=== PATIENT | male | born 1975 | race Hispanic/Latino ===

== ENCOUNTER 2021-05-12 09:40 | Emergency (ER) | payer MEDICARE ==
--- NOTE | 2021-05-12 09:46 | Emergency Department Report ---
ED Chest Pain HPI - General Stated Complaint: CHEST PAIN Time Seen by Provider: 05/12/21 09:41 - History of Present Illness Initial Comments: 45-year-old male presents to the emergency department through triage with a complaint of a syncopal episode followed by left-sided chest pain, left arm pain, and muscle spasms/contractures. 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 At the time of my examination the patient has his left upper extremity contracted up against his body unable to relax his muscles. He has a remote history of non-hodgkins lymphoma. He denies any tobacco, illicit drug use or alcohol use/abuse. He did not take anything for symptoms prior to presentation. - Related Data Allergies Allergy/AdvReac Type Severity Reaction Status Date / Time No Known Allergies Allergy Unverified 05/12/21 09:58 Heart Score - HEART Score History: Slightly suspicious EKG: Normal Age: < 45 Risk factors: 1-2 risk factors Troponin: < normal limit HEART Score: 1 - EKG Read Time Time EKG Completed: 09:41 EKG Read Time: 09:42 ED Review of Systems ROS: Stated complaint: CHEST PAIN Other details as noted in HPI Comment: All other systems reviewed and negative Constitutional: denies: chills, fever Eyes: denies: eye pain, vision change ENT: denies: ear pain, throat pain Respiratory: denies: cough, wheezing Cardiovascular: chest pain, syncope Gastrointestinal: denies: abdominal pain, vomiting Genitourinary: denies: dysuria, discharge Musculoskeletal: myalgia. denies: back pain Skin: denies: rash, lesions Neurological: denies: numbness, paresthesias ED Physical Exam - Other Other exam information: GENERAL: The patient is well-developed well-nourished. HENT: Normocephalic. Atraumatic. Patient has moist mucous membranes. EYES: Extraocular motions are intact. NECK: Supple. Trachea is midline. CHEST/LUNGS: Clear to auscultation. There is no respiratory distress noted. HEART/CARDIOVASCULAR: Regular. There is mild tachycardia. There is no murmur. ABDOMEN: Abdomen is soft, nontender. Patient has normal bowel sounds. SKIN: Skin is warm and dry. NEURO: The patient is awake, alert, and oriented. The patient is cooperative. The patient has no focal neurologic deficits. Normal speech. MUSCULOSKELETAL: The patient appears to have a left upper extremity muscle spasm with his arm contracted against his body. Tenderness to palpation along the left upper extremity. Radial pulse +2/4 and capillary refill less than 2 seconds. ED Course Vital Signs 05/12/21 05/12/21 05/12/21 09:49 10:01 10:06 Temperature 98.7 F Pulse Rate 116 H 110 H 98 H Respiratory 16 14 18 Rate Blood Pressure 126/80 122/68 O2 Sat by Pulse 97 97 100 Oximetry 05/12/21 10:09 Temperature Pulse Rate Respiratory 18 Rate Blood Pressure O2 Sat by Pulse 100 Oximetry HAYDEN score - Hayden Score Age > 65: (0) No Aspirin use within the Past 7 Days: (0) No 3 or more CAD Risk Factors: (0) No 2 or more Angina events in past 24 hrs: (0) No Known CAD with more than 50% Stenosis: (0) No Elevated Cardiac Markers: (0) No ST Deviation Greater than 0.5mm: (0) No HAYDEN Score: 0 ED Medical Decision Making - Lab Data Result diagrams: 05/12/21 10:11 05/12/21 10:11 Lab Results 05/12/21 05/12/21 05/12/21 Range/Units 10:11 10:11 10:11 WBC 11.4 H (4.5-11.0) K/mm3 RBC 4.92 (3.65-5.03) M/mm3 Hgb 16.0 H (11.8-15.2) gm/dl Hct 47.2 H (35.5-45.6) % MCV 96 H (84-94) fl MCH 33 H (28-32) pg MCHC 34 (32-34) % RDW 13.8 (13.2-15.2) % Plt Count 270 (140-440) K/mm3 Lymph % (Auto) 17.3 (13.4-35.0) % Heard % (Auto) 5.0 (0.0-7.3) % Eos % (Auto) 1.3 (0.0-4.3) % Baso % (Auto) 0.5 (0.0-1.8) % Lymph # (Auto) 2.0 (1.2-5.4) K/mm3 Heard # (Auto) 0.6 (0.0-0.8) K/mm3 Eos # (Auto) 0.1 (0.0-0.4) K/mm3 Baso # (Auto) 0.1 (0.0-0.1) K/mm3 Seg Neutrophils % 75.9 H (40.0-70.0) % Seg Neutrophils # 8.6 H (1.8-7.7) K/mm3 D-Dimer 151.27 (0-234) ng/mlDDU Sodium 141 (137-145) mmol/L Potassium 4.6 (3.6-5.0) mmol/L Chloride 106.6 (98-107) mmol/L Carbon Dioxide 22 (22-30) mmol/L Anion Gap 17 mmol/L BUN 18 (9-20) mg/dL Creatinine 0.9 (0.8-1.3) mg/dL Estimated GFR > 60 ml/min BUN/Creatinine Ratio 20 % Glucose 107 H (75-100) mg/dL Calcium 9.0 (8.4-10.2) mg/dL Total Bilirubin 0.30 (0.1-1.2) mg/dL AST 18 (5-40) units/L ALT 27 (7-56) units/L Alkaline Phosphatase 78 (35-129) units/L Total Creatine Kinase 131 (55-170) units/L Troponin T < 0.010 (0.00-0.029) ng/mL Total Protein 6.8 (6.3-8.2) g/dL Albumin 4.3 (3.9-5) g/dL Albumin/Globulin Ratio 1.7 % - EKG Data -: EKG Interpreted by Me EKG shows normal: sinus rhythm, axis, intervals, QRS complexes, ST-T waves Rate: tachycardia (106 bpm) - EKG Data When compared to previous EKG there are: previous EKG unavailable Interpretation: normal EKG (With mild tachycardia at [address] elevation [place]) - Radiology Data Radiology results: image reviewed interpreted by me: Chest x-ray does not show any acute process. There are no pleural effusions, obvious pneumonia and there is no pneumothorax. - Medical Decision Making Patient presents to the emergency department after he had a syncopal episode followed by some chest pain with left arm pain and left upper extremity muscle spasm/contracture. The patient was eventually able to relax his left upper extremity. The pain in the arm and the chest went away but he complained of some tightness around his face and head. However, once he relaxed, the patient does not have any focal, motor or sensory deficits and his cranial nerves are intact. EKG did not have any morphology consistent with ST elevation myocardial infarction or any arrhythmia. Chest x-ray does not show any pneumonia, pleural effusions, pneumothorax, widened mediastinum, or any other acute process. Labs have thus far been unremarkable including CBC, metabolic panel, negative troponin, negative D-dimer. Patient had been in the emergency department about 1.5 hours when he suddenly demanded to leave AGAINST MEDICAL ADVICE. He understands that leaving at this time could lead to a recurrence of his chest pain, muscle contractures, syncopal episode, that he could have an undiagnosed [place], and this all could lead to increased pain, debility, coma or even . The patient is awake, alert, oriented and has a normal decision-making capacity. Therefore, despite under standing the risks involved, the patient has signed out AGAINST MEDICAL ADVICE. He understands that he can return to the emergency department if he changes his mind about further work-up or with any acute distress. Critical Care Time: No Critical care attestation.: If time is entered above; I have spent that time in minutes in the direct care of this critically ill patient, excluding procedure time. ED Disposition Clinical Impression: Syncope, Chest pain, Muscle spasm Disposition: 07 LEFT AGAINST MEDICAL ADVICE Is pt being admited?: No Condition: Stable Instructions: Syncope (ED), Nonspecific Chest Pain, Adult Forms: AMA Form Time of Disposition: 15:44
[2021-05-12 10:09] VITALS: BP 122/68
[2021-05-12] MEDS ORDERED: SODIUM CHLORIDE 0.9% 1000 ML 1,000 ML IV ONE (10:30)
[2021-05-12] MEDS ORDERED: MORPHINE 4 MG/1 ML INJ IV SCH (10:30)
--- NOTE | 2021-05-12 10:37 | XRay Report ---
CHEST 1 VIEW 05/12/2021 9:54 AM INDICATION / CLINICAL INFORMATION: Chest pain. COMPARISON: None available. FINDINGS: SUPPORT DEVICES: None. HEART / MEDIASTINUM: The heart size and pulmonary vasculature are normal. The aorta is normal in vadim nicola. LUNGS / PLEURA: No significant pulmonary or pleural abnormality. No pneumothorax. ADDITIONAL FINDINGS: No significant additional findings. IMPRESSION: No acute findings. Signer Name: Alex Hernandez MD Signed: 05/12/2021 10:33 AM Workstation Name: [id number]
[2021-05-12 10:40] LABS: Basophils # (Auto) 0.1 K/mm3 (0.0-0.1); Basophils % (Auto) 0.5 % (0.0-1.8); Eosinophils # (Auto) 0.1 K/mm3 (0.0-0.4); Eosinophils % (Auto) 1.3 % (0.0-4.3); Hematocrit 47.2 % (35.5-45.6); Lymphocytes % (Auto) 17.3 % (13.4-35.0); Mean Corpuscular HGB Conc 34 % (32-34); Mean Corpuscular Volume 96 fl (84-94); Monocytes # (Auto) 0.6 K/mm3 (0.0-0.8); Platelet Count 270 K/mm3 (140-440); Red Blood Count 4.92 M/mm3 (3.65-5.03); Red Cell Distribution Width 13.8 % (13.2-15.2)
[2021-05-12 11:05] LABS: Alanine Aminotransferase 27 units/L (7-56); Albumin 4.3 g/dL (3.9-5); BUN/Creatinine Ratio 20; Blood Urea Nitrogen 18 mg/dL (9-20); Hemolysis Index 7
--- NOTE | 2021-05-18 09:46 | Electrocardiograph Report ---
[facility] Test Date: 2021-05-12 Test Time: 09:41:32 Pat Name: CHRISTAL MAO Department: Room: Gender: M [employer] Engineering Teacher: KEVAN : 1975 Requested By: NORRIS DAVIDSON Order Number: [id number] Reading MD: Chu Cohn Measurements Intervals [place] Rate: 106 P: 66 LA: 184 QRS: 92 QRSD: 91 T: 9 QT: 327 QTc: 434 Interpretive Statements Sinus tachycardia Rightward axis deviation No previous ECG available for comparison Electronically Signed On 05-18-2021 9:46:08 EDT by Chu Cohn
== END 2021-05-12 11:16 | disposition left against medical advice (07) ==
LOC: ED 09:40
DX: R55 Syncope and collapse (principal); R07.9 Chest pain, unspecified; R25.2 Cramp and spasm
CPT/HCPCS: 36415; 71045; 80053; 82550; 84484; 85025; 85379; 93005; 96360; 99284; J7030